=== PATIENT | female | born 1975 ===

== ENCOUNTER 2021-07-26 14:00 | Day surgery (SDC) | payer BC ==
[~2021-07-26] VITALS: Ht 167.6 cm; Wt 96.8 kg
[2021-07-26] MEDS ORDERED: PRIL40 PO (15:22)
[2021-07-26] MEDS ORDERED: LOPRESSOR 225 MG/TAB PO (15:22)
[2021-07-26 15:29] VITALS: BP 138/80; PULSE 93; TEMP 98.4
--- NOTE | 2021-07-26 17:23 | NUR ---
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 PATIENT ARRIVED BACK INTO BAY [facility]. AT BEDSIDE. VITAL SIGNS STABLE. PATIENT REQUESTING BLUEBERRY MUFFIN AND SPRITE. TOLERATED WELL WITH NO COMPLAINT OF NAUSEA/VOMITING OR PAIN.
[2021-07-26 17:25] VITALS: BP 117/73; PULSE 79; TEMP 97.5
[2021-07-26 17:30] VITALS: BP 123/72; PULSE 76; TEMP 97.5
--- NOTE | 2021-07-26 17:41 | NUR ---
1730: PATIENT DOING WELL, VITALLY STABLE. WENT TO RESTROOM. AT BEDSIDE. NO COMPLAINT OF NAUSEA/VOMITING OR PAIN.
[2021-07-26 17:45] VITALS: BP 119/90; PULSE 84
--- NOTE | 2021-07-26 18:00 | NUR ---
1745: PATIENT VITALLY STABLE. GOT DRESSED. AT SIDE. WENT THROUGH DISCHARGE INFORMATION WITH PATINET. QUESTIONS ANSWERED. VERBALIZED UNDERSTANDING TO EDUCATION. 1755: PATIENT ESCORTED TO ED ENTRANCE AND PULLED UP THE SUV.
== END 2021-07-26 17:55 | disposition home or self-care (01) ==
LOC: SDCO 14:00
DX: N13.2 Hydronephrosis with renal and ureteral calculous obstruction (principal); Q62.5 Duplication of ureter; Z79.899 Other long term (current) drug therapy; E66.9 Obesity, unspecified; I10 Essential (primary) hypertension; G43.909 Migraine, unspecified, not intractable, without status migrainosus
CPT/HCPCS: C1769; J0690; J1100; J2405; J2704; J3010; J7120; Q9967